=== PATIENT | male | born 1985 | race Caucasian/White ===

== ENCOUNTER 2023-01-12 13:33 | Emergency (ER) | payer MEDICAID ==
[~2023-01-12] VITALS: Ht 165.1 cm; Wt 61.0 kg
[2023-01-12 13:36] VITALS: O2SAT 96
[2023-01-12] MEDS ORDERED: IBUPROFEN 400MG TABLET PO ONE (13:45)
[2023-01-12] MEDS ORDERED: ACETAMINOPHEN 325MG TABLET PO ONE (13:45)
[2023-01-12] MEDS ORDERED: IBUP-2028 MT (16:02)
[2023-01-12 16:16] VITALS: BP 145/95; PULSE 80; RESP 15; TEMP 98.6
== END 2023-01-12 16:23 | disposition home or self-care (01) ==
LOC: ER 13:33
DX: M79.641 Pain in right hand (principal)
CPT/HCPCS: 73130; 99283